=== PATIENT | female | born 1955 | race American Indian/Alaskan Native ===

== ENCOUNTER 2018-07-11 14:12 | Emergency (ER) | payer OTHER ==
[2018-07-11] MEDS ORDERED: Albuterol-Ipratrop 3 mg / 0.5 (3 ml) UD INH STA (16:50)
[2018-07-11] MEDS ORDERED: Magnesium Sulfate 2 gm/50 ml 2 GM/50 ML BAG IVPB ONE (16:51)
--- NOTE | 2018-07-11 16:55 | ED PDOC ---
History of Present Illness History of Present Illness: 63 y/o female with bilateral BKAs, uncontrolled DM and is a heavy smoker presents to the ED for evaluation of a cough, onset several weeks ago. Patient reports she saw her PMD last week and was given antibiotics of which she took twice a day for seven days. However, patient states the cough has worsened. Patient reports her last day of antibiotics was 4 days ago. Patient states cough is productive of sputum. Patient additionally reports asthma has worsened over the last few days and has not resolved with home medications. Denies chest pain, nausea, vomiting, diarrhea, fever and ay other complaints. PMD: Jesse Salinas HPI: Influenza Time Seen by Provider: 07/11/18 15:48 Chief Complaint: Cough, Cold, Congestion Chief Complaint (Provider): Cough, Cold, Congestion History Per: Patient Exam Limitations: no limitations Onset/Duration Of Symptoms: Days (x7) Symptoms include: cough Past Medical History Reviewed: Historical Data, Nursing Documentation, Vital Signs Vital Signs: Last Vital Signs Temp 98.7 F 07/11/18 14:52 Pulse 75 07/11/18 14:52 Resp 20 07/11/18 14:52 BP 170/83 H 07/11/18 14:52 Pulse Ox 97 07/11/18 14:52 - Medical History PMH: Diabetes (uncontrolled) Other PMH: Bilateral BKA - Surgical History Surgical History: No Surg Hx - Family History Family History: States: Unknown Family Hx - Social History Current smoker - smoking cessation education provided: Yes (Heavy Smoker ) - Home Medications Home Medications: Ambulatory Orders Medication Instructions Recorded Azithromycin 250 mg PO DAILY #4 tablet 07/11/18 - Allergies Allergies/Adverse Reactions: Allergies Allergy/AdvReac Type Severity Reaction Status Date / Time No Known Allergies Allergy Verified 07/11/18 16:21 Review of Systems ROS Statement: Except As Marked, All Systems Reviewed And Found Negative Constitutional: Negative for: Fever Cardiovascular: Negative for: Chest Pain Respiratory: Positive for: Cough Gastrointestinal: Negative for: Nausea, Vomiting, Diarrhea Physical Exam - Reviewed Nursing Documentation Reviewed: Yes Vital Signs Reviewed: Yes - Physical Exam Appears: Positive for: Well, No Acute Distress (Sleeping comfortably in stretcher. Clothes and belongings smell heavily in cigarette smoke. ) Head Exam: Positive for: ATRAUMATIC, NORMOCEPHALIC Skin: Positive for: Normal Color, Warm, Dry. Negative for: Rash Eye Exam: Positive for: Normal appearance, EOMI, PERRL Neck: Positive for: Normal, Painless ROM Cardiovascular/Chest: Positive for: Regular Rate, Rhythm. Negative for: Murmur Respiratory: Positive for: Crackles (in the bases of the lungs bilaterally), Wheezing (Diffuse wheeze) Gastrointestinal/Abdominal: Positive for: Normal Exam, Soft. Negative for: Te nderness Medical Decision Making Medical Decision Making: Time: 1650 A/P: Workup for pneumonia vs URI vs asthma exacerbation -- Labs and CXR ordered -- Duonebs ordered -- Reassess patient -- VBG -- EKG -- BMP -- CBC with Differentials -- CXR Two Views -- Duoneb 3mg/0.5mg (3ml) UD 3 ml INH -- Magnesium Sulfate 2 gm in 50 ml IVPB -- SOLU-Medrol 125 mg IVP -- Peak Flow Pre/Post Tx Scribe Attestation: Documented by Eliz Tan, acting as a scribe for Constance Larose MD. Provider Scribe Attestation: All medical record entries made by the Scribe were at my direction and personally dictated by me. I have reviewed the chart and agree that the record accurately reflects my personal performance of the history, physical exam, medical decision making, and the department course for this patient. I have also personally directed, reviewed, and agree with the discharge instructions and disposition. - Laboratory Results Result Diagrams: 07/11/18 17:48 07/11/18 17:48 - ECG O2 Sat by Pulse Oximetry: 97 Disposition - Clinical Impression Clinical Impression: Upper respiratory infection - Disposition Disposition: Routine/Home Disposition Time: 18:45 Condition: IMPROVED Additional Instructions: Take medications as prescribed. Follow up with primary medical doctor. Prescriptions: Azithromycin 250 mg PO DAILY #4 tablet Forms: [employer] (Peruvian) Print Language: TAJIK
[2018-07-11] MEDS ORDERED: Albuterol-Ipratrop 3 mg / 0.5 (3 ml) UD ONE (17:23)
[2018-07-11] MEDS ORDERED: Magnesium Sulfate 2 gm/50 ml 2 GM/50 ML BAG ONE (17:23)
--- NOTE | 2018-07-11 17:41 | RAD ---
Date of service: 07/11/2018 HISTORY: cough COMPARISON: 07/06/2018 TECHNIQUE: Chest PA and lateral FINDINGS: LUNGS: No active pulmonary disease. PLEURA: No significant pleural effusion identified. No pneumothorax apparent. CARDIOVASCULAR: No aortic atherosclerotic calcification present OSSEOUS STRUCTURES: No significant abnormalities. VISUALIZED UPPER ABDOMEN: Normal. OTHER FINDINGS: None. IMPRESSION: No active disease.
[2018-07-11 17:51] LABS: BASO # 0.1 K/uL (0.0-0.2); BASO % 1.4 % (0.0-2.0); EOS # 0.6 K/uL (0.0-0.7); EOS % 7.6 % (0.0-4.0); HEMOGLOBIN 13.9 g/dL (12.0-16.0); LYMPH # 2.8 K/uL (1.0-4.3); LYMPH % 35.7 % (20.0-40.0); MEAN CELL VOLUME 82.2 fl (81.0-99.0); MEAN CORPUSCULAR HEMOGLOBIN 26.8 pg (27.0-31.0); MEAN CORPUSCULAR HGB CONC 32.6 g/dL (33.0-37.0); MEAN PLATELET VOLUME 9.1 fl (7.2-11.7); MONO # 0.6 K/uL (0.0-0.8); MONO % 7.4 % (0.0-10.0); NEUT # 3.8 K/uL (1.8-7.0); NEUT % 47.9 % (50.0-75.0); RBC 5.21 Mil/uL (3.80-5.20); RED CELL DISTRIBUTION WIDTH 16.3 % (11.5-14.5); WHITE BLOOD COUNT 7.9 K/uL (4.8-10.8)
[2018-07-11 17:56] LABS: VENOUS BLOOD GAS BASE EXCESS 3.2 mmol/L (0.0-2.0); VENOUS BLOOD GAS PCO2 53 mmHg (40-60); VENOUS BLOOD GAS PO2 24 mm/Hg (30-55); VENOUS BLOOD PH 7.36 (7.32-7.43)
[2018-07-11 18:19] LABS: BLOOD UREA NITROGEN 13 mg/dl (7-17); CALCIUM 9.4 mg/dL (8.4-10.2); GFR NON-AFRICAN AMERICAN 56
[2018-07-11 19:25] VITALS: BP 146/79; PULSE 72; RESP 17; TEMP 98.4; O2SAT 96
--- NOTE | 2018-07-12 06:55 | CARD ---
APPROVED REPORT Date of service: 07/11/2018 EKG Measurement Heart [id number] <Conclusion> Normal sinus rhythm ST & T wave abnormality, consider inferolateral ischemia Abnormal ECG
== END 2018-07-11 19:25 | disposition home or self-care (01) ==
LOC: H.ER 14:12
DX: J06.9 Acute upper respiratory infection, unspecified (principal); E11.9 Type 2 diabetes mellitus without complications; F17.200 Nicotine dependence, unspecified, uncomplicated; J45.909 Unspecified asthma, uncomplicated; Z89.511 Acquired absence of right leg below knee; Z89.512 Acquired absence of left leg below knee
CPT/HCPCS: 71046; 80048; 82803; 85025; 93005; 94640; 96374; 99283; J2930